=== PATIENT | female | born 1950 | race African-American/Black ===

== ENCOUNTER 2019-04-05 09:07 | Inpatient (IN) | payer OTHER ==
[~2019-04-05] VITALS: Ht 152.4 cm; Wt 77.2 kg
[2019-04-05 09:09] VITALS: BP 88/45
--- NOTE | 2019-04-05 09:15 | NUR ---
PT. HAS ALLERGY, CANNOT RECALL NAME OF ALLERGEN
[2019-04-05] MEDS ORDERED: LASIX 40 MG TAB40 M2 PO (09:30)
[2019-04-05] MEDS ORDERED: PRINIVIL20 M1 PO (09:31)
[2019-04-05] MEDS ORDERED: JANUVIA25 MG PO (09:31)
[2019-04-05] MEDS ORDERED: NEURONTIN 300M300 M2 PO (09:32)
[2019-04-05] MEDS ORDERED: ASPIRIN EC81 M1 PO (09:32)
[2019-04-05] MEDS ORDERED: LANTUS SUBQ (09:33)
[2019-04-05] MEDS ORDERED: OXYCODONE HCL5 MG PO (09:34)
[2019-04-05 11:16] LABS: BASOPHILS 0.5 % (0.0-2.0); EOSINOPHILS 12.4 % (0.0-3.0); HEMATOCRIT 32.3 % (37.0-47.0); HEMOGLOBIN 10.3 gm/dL (12.0-15.0); LYMPHOCYTES 27.7 % (24.0-44.0); MCH 30.4 pg (26.0-34.0); MCHC 31.9 g/dL (28.0-37.0); MCV 95.4 fL (80.0-100.0); MONOCYTES 4.9 % (1.0-8.0); PLATELET COUNT 236 thou/uL (150-400); POLYS 54.5 % (36.0-66.0); RBC 3.38 mil/uL (4.20-5.00); WBC 9.2 thou/uL (4.0-11.0)
[2019-04-05 11:18] LABS: ANION GAP 9 mmol/L (7-16); BUN 41 mg/dL (7-18); CALCIUM 9.4 mg/dL (8.5-10.1); CHLORIDE 107 mmol/L (98-107); CO2 30 mmol/L (21-32); CREATININE 3.8 mg/dL (0.6-1.0); GLUCOSE 153 mg/dL (74-106); POTASSIUM 4.7 mmol/L (3.5-5.1); SODIUM 146 mmol/L (136-145)
[2019-04-05 11:27] LABS: ALBUMIN 2.8 g/dL (3.4-5.0); DIRECT BILIRUBIN 0.2 mg/dL (<0.1-0.3); SGOT 35 U/L (15-37); SGPT 38 U/L (30-65); TOTAL BILIRUBIN 0.4 mg/dL (<0.1-1.0); TOTAL PROTEIN 6.6 g/dL (6.4-8.2); TROPONIN-I <0.06 ng/mL (<0.06)
[2019-04-05 12:54] VITALS: BP 97/32
[2019-04-05 13:47] LABS: URINE BILIRUBIN NEGATIVE (Negative); URINE BLOOD NEGATIVE (Negative); URINE CLARITY CLEAR; URINE COLOR YELLOW; URINE GLUCOSE-RANDOM* NEGATIVE (Negative); URINE KETONES NEGATIVE (Negative); URINE LEUKOCYTES-REFLEX NEGATIVE (Negative); URINE NITRITE-REFLEX NEGATIVE (Negative); URINE PROTEIN (DIPSTICK) TRACE (Negative); URINE UROBILINOGEN 0.2 E.U./dl (0.2-1.0)
[2019-04-05 13:59] VITALS: BP 121/49
[2019-04-05 15:00] VITALS: BP 118/58
--- NOTE | 2019-04-05 18:12 | NUR ---
PT ADMITTED TO CCU, ASSESSED, DENIES PAIN, BUT IS BOTHERED BY ITCHING OFF AND ON. PROVIDING COMFORT MEASURES AND HAVE LET DR KNOW. DISCUSSED PLAN OF CARE WITH PT, PT VERBALIZED UNDERSTANDING. WILL MONITOR
[2019-04-05 20:15] VITALS: BP 93/48
[2019-04-06 00:56] VITALS: BP 103/54
[2019-04-06 04:45] VITALS: BP 101/54
[2019-04-06 04:47] LABS: ABSOLUTE NEUTROPHILS 3.4 thou/uL (1.4-8.2); EOSINOPHILS 16.3 % (0.0-3.0); HEMATOCRIT 28.2 % (37.0-47.0); HEMOGLOBIN 9.3 gm/dL (12.0-15.0); MCHC 32.8 g/dL (28.0-37.0); MCV 94.6 fL (80.0-100.0); MONOCYTES 6.2 % (1.0-8.0); PLATELET COUNT 211 thou/uL (150-400); POLYS 50.5 % (36.0-66.0); RBC 2.98 mil/uL (4.20-5.00); RDW 15.1 % (10.5-14.5); WBC 6.8 thou/uL (4.0-11.0)
[2019-04-06 04:59] LABS: ALBUMIN 2.2 g/dL (3.4-5.0); CALCIUM 8.6 mg/dL (8.5-10.1); MAGNESIUM 2.3 mg/dL (1.8-2.4); POTASSIUM 4.5 mmol/L (3.5-5.1); TOTAL BILIRUBIN 0.3 mg/dL (<0.1-1.0); TOTAL PROTEIN 5.4 g/dL (6.4-8.2)
[2019-04-06 05:00] LABS: CREATININE 2.7 mg/dL (0.6-1.0)
--- NOTE | 2019-04-06 05:23 | NUR ---
ASSUMED PT CARE AT 1900. PT IS ALERT AND ORIENTED WITH NO SIGN OF DISTRESS NOTED IN PT. FAMILY AT BEDSIDE. FALL PRECAUTION IN PLACE. PT IS STABLE. COMPLAINS OF ITCHING SKIN. ASSESSMENT COMPLETED AND DOCUMENTED. SCHEDULED MEDS ADMINISTERED TO PT. NO FURTHER NEEDS REUQESTED AT THIS TIME.
[2019-04-06 07:55] VITALS: BP 92/56
[2019-04-06 11:15] VITALS: BP 108/63
[2019-04-06 16:19] VITALS: BP 117/64
[2019-04-06 21:35] VITALS: BP 103/48
[2019-04-07 04:35] LABS: ABSOLUTE NEUTROPHILS 3.3 thou/uL (1.4-8.2); BASOPHILS 0.8 % (0.0-2.0); EOSINOPHILS 8.8 % (0.0-3.0); HEMATOCRIT 25.3 % (37.0-47.0); HEMOGLOBIN 8.2 gm/dL (12.0-15.0); MCH 30.8 pg (26.0-34.0); MCHC 32.5 g/dL (28.0-37.0); MCV 94.7 fL (80.0-100.0); MONOCYTES 7.3 % (1.0-8.0); PLATELET COUNT 195 thou/uL (150-400); POLYS 53.1 % (36.0-66.0); RBC 2.67 mil/uL (4.20-5.00); RDW 15.6 % (10.5-14.5); WBC 6.3 thou/uL (4.0-11.0)
[2019-04-07 04:55] LABS: ALBUMIN 2.2 g/dL (3.4-5.0); CALCIUM 8.6 mg/dL (8.5-10.1); MAGNESIUM 2.1 mg/dL (1.8-2.4); PHOSPHORUS 2.4 mg/dL (2.5-4.9); POTASSIUM 4.2 mmol/L (3.5-5.1); TOTAL BILIRUBIN 0.3 mg/dL (<0.1-1.0); TOTAL PROTEIN 5.5 g/dL (6.4-8.2)
--- NOTE | 2019-04-07 05:30 | NUR ---
ASSUMED PT CARE AT 1900. PT IS ALERT AND ORIENTED WITH NO SIGN OF DISTRESS NOTED. PT IS LAYING IN BED. PT VERBALIZES ITCHING SKIN. ASSESSMENT COMPLETED AND DOCUMENTED. VSS. SCHEDULED MEDS ADMINISTERED TO PT. DENIES ANY PAIN. CONTIUNE TO MONITOR PATIENT. DENIES ANY FURTHER NEEDS AT THIS TIME.
[2019-04-07 05:38] VITALS: BP 129/50
[2019-04-07 07:58] VITALS: BP 123/69
[2019-04-07 11:43] VITALS: BP 134/76
[2019-04-07 17:06] VITALS: BP 136/72
--- NOTE | 2019-04-07 18:19 | NUR ---
ASSUMED CARE OF PT AT SHIFT CHANGE. ASSESSMENTS CHARTED. MEDS GIVEN PER JUL. VSS. PT A&OX4. UP AD NORY. PLAN TO WATCH KIDNEY FUNCTION FOR ANOTHER DAY WITH POSSIBLE DC TOMORROW. WILL CONTINUE TO MONITOR AND FOLLOW POC.
[2019-04-07 19:16] VITALS: BP 130/68
[2019-04-08 04:57] VITALS: BP 135/688
--- NOTE | 2019-04-08 05:14 | NUR ---
ASSUMED PT CARE AT 1900. PT IS ALERT AND ORIENTED WITH NO SIGN OF DISTRESS NOTED IN PT. TELE-MONITOR DISCONTINUED PER PHYSICIAN. ASSESSMENT COMPLETED AND DOCUMENTED. SCHEDULED MEDS ADMINISTERED TO PT. NO FURTHER NEEDS REQUESTED AT THIS TIME. PT DENIES ANY PAIN
[2019-04-08 05:41] LABS: ALBUMIN 2.7 g/dL (3.4-5.0); CALCIUM 9.2 mg/dL (8.5-10.1); CREATININE 1.6 mg/dL (0.6-1.0); PHOSPHORUS 2.7 mg/dL (2.5-4.9); POTASSIUM 4.6 mmol/L (3.5-5.1)
[2019-04-08 07:20] VITALS: BP 134/65
[2019-04-08] MEDS ORDERED: PREDNISONE 20 M20 M1 PO (10:48)
[2019-04-08 11:46] VITALS: BP 134/65
--- NOTE | 2019-04-08 13:39 | NUR ---
ASSUMED CARE OF PT AT SHIFT CHANGE. ASSESSMENT CHARTED. MEDS GIVEN PER JUL. VSS. PT A&OX4. UP AD NORY. NO C/O PAIN. DC ORDERS AND INSTRUCTIONS COMPLETED. TELE AND IV REMOVED. THIS NURSE WALKED PT TO MAIN ENTRANCE TO WAITING FAMILY IN PRIVATE CAR.
--- NOTE | 2019-04-12 08:35 | HC ---
[facility] [place] [address] CONSULTATION Name: MELISSA RAMSAY Room #: 213-[address] [facility] IN M.R.#: [id number] Admission: 04/05/19 Attend Phys: Stephania Perez MD Discharge: 04/08/19 Date of : 54 Report #: [id number] THIS REPORT FOR: //name// CC: Stephania Simon REASON FOR THE CONSULTATION: Abnormal kidney function. HISTORY OF PRESENT ILLNESS: A 68-year-old with past medical history of diabetes mellitus, hypertension, chronic kidney disease with the most creatinine value of 1.5. The patient was in a trip to [place] and was told that she has abnormal kidney function and liver function after she visited with the local hospital. She does not recall the name of her medications, but she mentioned that she has been taking lisinopril, Januvia and Lasix. She started to have significant weakness associated with some nausea. She was also noticing that she had some skin flaking. Symptoms were associated with fatigue and muscle aches all over. She denies any fever. No reported urinary symptoms. No recent changes in the medications other than the prednisone that was recently started on the patient. On arrival to the hospital, the patient was found to be in acute kidney injury. She was also found to be hypotensive. PAST MEDICAL HISTORY: 1. Diabetes mellitus. 2. Hypertension. 3. Elevated liver enzymes. 4. Neuropathy. PAST SURGICAL HISTORY: 1. Right shoulder tumor removed. 2. Hysterectomy. FAMILY HISTORY: Significant for diabetes mellitus and hypertension. SOCIAL HISTORY: She denies drug or alcohol abuse. REVIEW OF SYSTEMS: GENERAL: No fever or chills, but significant for weakness. CARDIOVASCULAR: No chest pain or palpitation. PULMONARY: No cough or hemoptysis. GASTROINTESTINAL: No nausea or vomiting. GENITOURINARY: No frequency, no urgency. MUSCULOSKELETAL: As per the history of present illness. SKIN: Significant for skin flaking and rash. MEDICATIONS: 1. Januvia. 2. Lisinopril. [facility] [address] [place] [address] CONSULTATION Name: MELISSA RAMSAY Room #: [address] [place] [address] IN M.R.#: [id number] Admission: 04/05/19 Attend Phys: Stephania Perez MD Discharge: 04/08/19 Date of : 54 Report #: [id number] 3. Gabapentin. 4. Furosemide. 5. Aspirin. PHYSICAL EXAMINATION: GENERAL: She is alert, oriented, in no apparent distress. VITAL SIGNS: Temperature is 37, pulse rate is 90, respiratory rate is 18, blood pressure is 101/54. HEAD AND NECK: No jugular venous distention. CHEST: No crackles. CARDIOVASCULAR: No rub detected. ABDOMEN: Soft, nontender with no hepatosplenomegaly. LOWER EXTREMITIES: Trace edema. SKIN: Diffuse scaling and flaking of her skin. LABORATORY VALUES: Reviewed. Creatinine is down to 2.7. Uric acid was significantly elevated at 14.8. White blood cell count is 6.8 with significant eosinophilia at 16.3. ASSESSMENT/IMPRESSION AND PLAN: 1. Acute kidney injury. 2. Skin rash. 3. Significant eosinophilia of unknown source. 4. Hypotension. 5. Differential diagnoses of this patient include hypotension-induced acute kidney injury while taking KRISTIAN inhibitor, interstitial nephritis. The lack of white blood cell count in the urine is against interstitial nephritis. Creatinine seems to be improving with the fluid. 6. Continue with IV fluid. 7. Continue to avoid any nephrotoxic medications. 8. Continue to hold lisinopril. 9. Management of her diabetes per the primary, continue to hold Januvia and metformin. 10. Skin rash issues are being addressed by her primary team. <ELECTRONICALLY SIGNED> By: Shai Leung MD 04/12/19 [id number] Shai Leung MD /nt
== END 2019-04-08 12:25 | disposition home or self-care (01) | DRG 682 ==
LOC: ER 09:07 → 2N 12:47 → EROBS 12:47 → 2N 13:55
PROVIDERS: Emergency Medicine; Hospitalist; ADMIT Internal Medicine
DX: N17.9 Acute kidney failure, unspecified (principal); E43 Unspecified severe protein-calorie malnutrition; E87.0 Hyperosmolality and hypernatremia; D62 Acute posthemorrhagic anemia; E66.9 Obesity, unspecified; E78.00 Pure hypercholesterolemia, unspecified; E11.40 Type 2 diabetes mellitus with diabetic neuropathy, unspecified; Z83.3 Family history of diabetes mellitus; D72.1 Eosinophilia; N18.3 Chronic kidney disease, stage 3 (moderate); E11.22 Type 2 diabetes mellitus with diabetic chronic kidney disease; I12.9 Hypertensive chronic kidney disease with stage 1 through stage 4 chronic kidney disease, or unspecified chronic kidney disease; M19.90 Unspecified osteoarthritis, unspecified site; D64.9 Anemia, unspecified; R33.9 Retention of urine, unspecified; L26 Exfoliative dermatitis; G89.4 Chronic pain syndrome; Z68.32 Body mass index [BMI] 32.0-32.9, adult; Z88.6 Allergy status to analgesic agent; Z88.8 Allergy status to other drugs, medicaments and biological substances; Z90.710 Acquired absence of both cervix and uterus; Z82.49 Family history of ischemic heart disease and other diseases of the circulatory system; Z79.899 Other long term (current) drug therapy
CPT/HCPCS: 10081